=== PATIENT | male | born 1990 | race African-American/Black ===

== ENCOUNTER 2017-11-11 10:39 | Emergency (ER) | payer MEDICAID ==
[~2017-11-11] VITALS: Ht 167.6 cm; Wt 63.5 kg
[2017-11-11 10:58] VITALS: BP 151/86
== END 2017-11-11 15:58 | disposition left against medical advice (07) ==
LOC: ER 10:39
DX: R05 Cough (principal); R06.02 Shortness of breath; R51 Headache; Z53.21 Procedure and treatment not carried out due to patient leaving prior to being seen by health care provider
CPT/HCPCS: 71046

== ENCOUNTER 2020-08-01 17:03 | Emergency (ER) | payer MEDICAID, OTHER ==
[~2020-08-01] VITALS: Ht 182.9 cm; Wt 81.6 kg
[2020-08-01] MEDS ORDERED: FLUMAZENIL 0.1 MG/ML INJ 10ML MDV IV ONE (17:15)
[2020-08-01] MEDS ORDERED: SODIUM CHLORIDE 0.9% 1,000 ML IV ONE ×2 (17:15)
[2020-08-01 17:30] VITALS: BP 107/60
[2020-08-01 18:17] LABS: Basophils # (auto) 0.1 10 ^3/uL (0-0.2); Basophils % (auto) 0.6 % (0.0-2.0); Eosinophils # (auto) 0.8 10 ^3/uL (0-0.8); Hematocrit 43.2 % (41.0-53.0); Hemoglobin 14.4 g/dL (13.5-17.5); Lymphocytes # (auto) 1.3 10 ^3/uL (0.4-5.4); Lymphocytes % (auto) 8.4 % (10.0-50.0); Mean Corpuscular Hemoglobin 30.1 pg (28.0-32.0); Mean Corpuscular Hgb Conc. 33.3 g/dL (32.0-36.0); Mean Corpuscular Volume 90.6 fL (80.0-100.0); Monocytes # (auto) 0.6 10 ^3/uL (0-1.3); Monocytes % (auto) 3.9 % (0.0-12.0); Neutrophils # (auto) 13.2 10 ^3/uL (1.6-8.6); Neutrophils % (auto) 82.1 % (37.0-80.0); Nucleated Red Blood Cells % 0.1 %; Platelet Count (auto) 249 10^3/uL (140-450); Red Blood Cells 4.77 10^6/uL (4.5-5.90); White Blood Cell 16.1 10^3/uL (4.4-10.8)
[2020-08-01 18:28] LABS: Albumin 3.8 g/dL (3.4-5.0); Calcium 8.7 mg/dL (8.5-10.1); Potassium 4.2 mmol/L (3.5-5.1)
[2020-08-01 18:30] LABS: BUN/Creatinine Ratio 9.8
[2020-08-01 18:32] LABS: Bilirubin, Total 0.5 mg/dL (0.2-1.0); Total Protein 6.9 g/dL (6.4-8.2)
== END 2020-08-01 18:26 | disposition left against medical advice (07) ==
LOC: EDUNIT# 17:03 → ER 17:03 → EDBD 17:03 → ER 18:26
DX: T50.901A Poisoning by unspecified drugs, medicaments and biological substances, accidental (unintentional), initial encounter (principal); X58.XXXA Exposure to other specified factors, initial encounter; Y93.89 Activity, other specified; Y92.89 Other specified places as the place of occurrence of the external cause; Y99.8 Other external cause status
CPT/HCPCS: 36415; 80053; 85025; 93005

== ENCOUNTER 2021-06-29 13:41 | Emergency (ER) | payer SELFPAY ==
[~2021-06-29] VITALS: Ht 167.6 cm; Wt 65.8 kg
[2021-06-29] MEDS ORDERED: ALBUTEROL SULF 2.5 MG/0.5ML(0.5%) NEB SOLN NEB ONE (14:45)
[2021-06-29] MEDS ORDERED: cefTRIAXone SOD 1,000 MG VL IM ONE (14:45)
[2021-06-29] MEDS ORDERED: IPRATROPIUM BROM 0.5 MG/2.5ML INH SOL NEB ONE (14:45)
[2021-06-29 14:46] VITALS: BP 127/89
[2021-06-29] MEDS ORDERED: PROM1SOL4 PO (15:47)
[2021-06-29] MEDS ORDERED: PRED20TA2 PO (15:47)
[2021-06-29] MEDS ORDERED: AZIT500T66 PO (15:47)
== END 2021-06-29 15:58 | disposition home or self-care (01) ==
LOC: ER 13:41
DX: J20.9 Acute bronchitis, unspecified (principal); J02.9 Acute pharyngitis, unspecified; F12.10 Cannabis abuse, uncomplicated
CPT/HCPCS: 94640; 96372; 99283; J0696; J7644